=== PATIENT | male | born 1970 | race Two or more races ===

== ENCOUNTER 2024-04-04 10:26 | Emergency (ER) | payer MEDICAID, OTHER ==
[~2024-04-04] VITALS: Ht 167.6 cm; Wt 86.4 kg
[2024-04-04 10:47] VITALS: BP 138/84; TEMP 97.8
[2024-04-04 10:48] VITALS: PULSE 69; RESP 16; O2SAT 97
[2024-04-04] MEDS ORDERED: CEPH500C PO (11:40)
[2024-04-04] MEDS ORDERED: MUPI2OIN2 EX (11:40)
[2024-04-04] MEDS: NEOMYCIN-BACITRACIN-POLYM UNITDOSE PKG TOP OINT TOP ONE (11:44)
[2024-04-04] MEDS: CEPHALEXIN 250 MG CAP PO ONE (11:44)
[2024-04-04] MEDS: TETANUS-DIPTH-ACEL PERTUSSIS 0.5ML SYR Tdap IM ONE (11:45)
[2024-04-04] MEDS: IBUPROFEN 800 MG TAB PO ONE (11:45)
== END 2024-04-04 11:51 | disposition home or self-care (01) ==
LOC: ER 10:26
DX: S61.313A Laceration without foreign body of left middle finger with damage to nail, initial encounter (principal); S60.032A Contusion of left middle finger without damage to nail, initial encounter; Z79.899 Other long term (current) drug therapy; W22.8XXA Striking against or struck by other objects, initial encounter; Y93.89 Activity, other specified; Y92.89 Other specified places as the place of occurrence of the external cause; Y99.8 Other external cause status
CPT/HCPCS: 11730; 73130; 90471; 90715